=== PATIENT | male | born 1985 | race Caucasian/White ===

== ENCOUNTER 2016-09-30 03:32 | Emergency (ER) | payer BC ==
[2016-09-30 03:37] VITALS: RESP 16
[2016-09-30] MEDS ORDERED: NS 1,000 ML IV ONE ×2 (03:40→04:12)
--- NOTE | 2016-09-30 03:40 | EDPHY ---
H & P Stated Complaint: syncopal episode at 0300am + LOC, pt reports abd pain HPI/ROS: HPI CHIEF COMPLAINT: Syncope positive LOC. HISTORY OF PRESENT ILLNESS: This patient is a 31-year-old male, denies any significant medical history, no surgical history,, earlier this evening was at a wedding and multiple alcoholic beverage including multiple beers and some Tequila. He also smoked marijuana. Around 3:00 a.m. he got up out of bed to go use the bathroom. He was standing over the toilet urinating and had tunnel vision and syncope. He fell to the ground. No seizure activity. He did hit his right chest wall on an object in the bathroom sustaining a superficial abrasion and now has right rib pain. Denies head injury. Neck pain, denies chest pain or shortness of breath. No preceding symptoms except lightheadedness and tunnel vision. He has never had syncopal issue before. He has no cardiac disease in his history or his family that he knows of. No premature cardiac disease or arrest. Denies CP or PRESTON or Neck Pain. Past Medical History: None Past Surgical History: None Social History:Endorses ETOH this evening, Tequila, Marijuana. Family History: No premature cardiac disease ROS REVIEW OF SYSTEMS: A comprehensive 10 point review of systems is otherwise negative aside from elements mentioned in the history of present illness. Exam Constitutional triage nursing summary reviewed, vital signs reviewed, awake/ alert. Eyes normal conjunctivae and sclera, EOMI, PERRLA. HENT normal inspection, atraumatic, moist mucus membranes, no epistaxis, neck supple/ no meningismus, no raccoon eyes. Respiratory clear to auscultation bilaterally, normal breath sounds, no respiratory distress, no wheezing. Cardiovascular right chest wall: Tender palpation over the right anterior lower ribs. No crepitus. No flail chest. Abrasion present. No laceration. rate normal, regular rhythm, no murmur, no edema, distal pulses normal. Gastrointestinal soft, non-tender, no rebound, no guarding, normal bowel sounds, no distension, no pulsatile mass. Genitourinary no CVA tenderness. Musculoskeletal no midline vertebral tenderness, full range of motion, no calf swelling, no tenderness of extremities, no meningismus, good pulses, neurovascularly intact. Skin pink, warm, & dry, no rash, skin atraumatic. Neurologic awake, alert and oriented x 3, AAOx3, moves all 4 extremities equally, motor intact, sensory intact, CN II-XII intact, normal cerebellar, normal vision, normal speech. Psychiatric normal mood/affect. Heme/Lymph/Immune no lymphadenopathy. Differential Diagnosis: Includes but is not limited to in a particular order, dehydration, electrolyte disturbance, orthostatic syncope, micturation syncope, syncope after ingesting alcohol marijuana this evening. Medical Decision Making: Plan for this patient full cardiac surgeon, EKG, IV fluid bolus, check orthostatic vital signs, basic blood work including troponin , EKG and two view chest x-ray. Patient will have a tetanus shot update. Re-evaluation: EKG interpretation by me on record in [employer] system. Impression time of EKG 3:45 a.m., this is sinus rhythm rate of 90, early [place] pulp pattern present. No acute ischemic changes appreciated. No signs of cardiac arrhythmia. QT interval 388. 0413AM: Patient was getting orthostatic vital signs blood pressure did not change blood on upon standing to get very lightheaded and almost fell over. No syncopal episode. Had one episode of nausea/vomiting when he stood up in xray. 0417AM: Back in room, resting, VSS. no Complaints, no cp no sob, no preston no neck pain no back pain. ED x-ray chest two view: Negative for acute cardiopulmonary disease. Specifically no rib fractures. No pneumothorax. Image interpreted by myself. 0447AM: Potassium noted to be low at 3.0. Will order him p. o. potassium as well as AK IV potassium rider. Getting 2nd L fluid this time. Will re- evaluate shortly. 0558AM: Re-evaluation at this time this patient is resting comfortably ambulated well to the bathroom multiple times without any lightheadedness or syncope. He feels better. Received potassium here and 2 L of fluid. Well- hydrated. Vital signs are stable. He denies any chest pain, shortness of breath , headache, lightheadedness and dizziness he feels comfortable going home. He does understand he has a syncopal episode or feels ill today should return emergency room. Stay well-hydrated drink lots of fluids. Eat appropriately. Rest. He understands. Source: Patient - Personal History Current Tetanus/Diphtheria Vaccine: Unsure Current Tetanus Diphtheria and Acellular Pertussis (TDAP): Unsure - Medical/Surgical History Hx Asthma: No Hx Chronic Respiratory Disease: No Hx Diabetes: No Hx Cardiac Disease: No Hx Renal Disease: No Hx Cirrhosis: No Hx Alcoholism: No Hx HIV/AIDS: No Hx Splenectomy or Spleen Trauma: No Other PMH: denies - Social History Smoking Status: Former smoker Constitutional: Initial Vital Signs Temperature (C) 36.5 C 09/30/16 03:34 Heart Rate 90 09/30/16 03:34 Respiratory Rate 16 09/30/16 03:34 Blood Pressure 121/64 H 09/30/16 03:34 O2 Sat (%) 98 09/30/16 03:34 O2 Delivery Mode Room Air Allergies/Adverse Reactions: No Known Allergies Allergy (Unverified 09/30/16 03:37) Home Medications: Medication Instructions Recorded NK [No Known Home Meds] 09/30/16 Medical Decision Making - Data Points Laboratory Results: Laboratory Results 09/30/16 03:50 09/30/16 03:50 09/30/16 09/30/16 09/30/16 04:30 03:50 03:50 WBC RBC Hgb Hct MCV MCH MCHC RDW Plt Count MPV Neut % (Auto) Lymph % (Auto) [place] % (Auto) Eos % (Auto) Baso % (Auto) Nucleat RBC Rel Count Absolute Neuts (auto) Absolute Lymphs (auto) Absolute Monos (auto) Absolute Eos (auto) Absolute Basos (auto) Absolute Nucleated RBC Immature Gran % Immature Gran # PT 13.4 SEC SEC TNP (12.0-15.0) INR 1.03 TNP (0.83-1.16) APTT 20.0 SEC L SEC TNP (23.0-38.0) D-Dimer < 0.27 ug/mLFEU ug/mLFEU TNP (0.00-0.50) Sodium 146 mEq/L H mEq/L (134-144) Potassium 3.0 mEq/L L mEq/L (3.5-5.2) Chloride 107 mEq/L mEq/L (97-110) Carbon Dioxide 23 mEq/l mEq/l (22-31) Anion Gap 16 mEq/L mEq/L (8-16) BUN 16 mg/dL mg/dL (7-23) Creatinine 1.0 mg/dL mg/dL (0.7-1.3) Estimated GFR > 60 Glucose 107 mg/dL H mg/dL (70-100) Calcium 9.3 mg/dL mg/dL (8.5-10.4) Magnesium 1.8 mg/dL mg/dL (1.6-2.3) Total Bilirubin 0.6 mg/dL mg/dL (0.1-1.4) Conjugated Bilirubin 0.3 mg/dL mg/dL (0.0-0.5) Unconjugated Bilirubin 0.3 mg/dL mg/dL (0.0-1.1) AST 42 IU/L IU/L (17-59) ALT 46 IU/L IU/L (21-72) Alkaline Phosphatase 53 IU/L IU/L (38-126) Troponin I < 0.012 ng/mL ng/mL (0-0.034) Total Protein 7.8 g/dL g/dL (6.3-8.2) Albumin 4.8 g/dL g/dL (3.5-5.0) Lipase 91.0 IU/L IU/L (23-300) Ethyl Alcohol 27 mg/dL H mg/dL (0-10) 09/30/16 03:50 WBC 8.45 10^3/uL 10^3/uL (3.80-9.50) RBC 4.79 10^6/uL 10^6/uL (4.40-6.38) Hgb 15.0 g/dL g/dL (13.7-17.5) Hct 43.6 % % (40.0-51.0) MCV 91.0 fL fL (81.5-99.8) MCH 31.3 pg pg (27.9-34.1) MCHC 34.4 g/dL g/dL (32.4-36.7) RDW 12.3 % % (11.5-15.2) Plt Count 273 10^3/uL 10^3/uL (150-400) MPV 10.1 fL fL (8.7-11.7) Neut % (Auto) 28.2 % L % (39.3-74.2) Lymph % (Auto) 57.6 % H % (15.0-45.0) [place] % (Auto) 10.2 % % (4.5-13.0) Eos % (Auto) 2.7 % % (0.6-7.6) Baso % (Auto) 0.9 % % (0.3-1.7) Nucleat RBC Rel Count 0.0 % % (0.0-0.2) Absolute Neuts (auto) 2.38 10^3/uL 10^3/uL (1.70-6.50) Absolute Lymphs (auto) 4.87 10^3/uL H 10^3/uL (1.00-3.00) Absolute Monos (auto) 0.86 10^3/uL H 10^3/uL (0.30-0.80) Absolute Eos (auto) 0.23 10^3/uL 10^3/uL (0.03-0.40) Absolute Basos (auto) 0.08 10^3/uL 10^3/uL (0.02-0.10) Absolute Nucleated RBC 0.00 10^3/uL 10^3/uL (0-0.01) Immature Gran % 0.4 % % (0.0-1.1) Immature Gran # 0.03 10^3/uL 10^3/uL (0.00-0.10) PT INR APTT D-Dimer Sodium Potassium Chloride Carbon Dioxide Anion Gap BUN Creatinine Estimated GFR Glucose Calcium Magnesium Total Bilirubin Conjugated Bilirubin Unconjugated Bilirubin AST ALT Alkaline Phosphatase Troponin I Total Protein Albumin Lipase Ethyl Alcohol Medications Given: Discontinued Medications Diphtheria/Tetanus/Acell Pertussis (Boostrix) 0.5 ml IM .ONCE ONE Stop: 09/30/16 03:47 Last Admin: 09/30/16 04:21 Dose: 0.5 ml Sodium Chloride (Ns) 1,000 mls @ 0 mls/hr IV ONCE ONE; Wide Open PRN Reason: Protocol Stop: 09/30/16 03:41 Last Admin: 09/30/16 03:57 Dose: 1,000 mls Sodium Chloride (Ns) 1,000 mls @ 0 mls/hr IV ONCE ONE PRN Reason: Wide Open Stop: 09/30/16 04:13 Last Admin: 09/30/16 04:19 Dose: 1,000 mls Potassium Chloride (Potassium Cl 10 Meq (Premix)) 100 mls @ 100 mls/hr IV Q1H CHEL Stop: 09/30/16 06:44 Last Admin: 09/30/16 04:55 Dose: 100 mls Ondansetron HCl (Zofran) 4 mg IVP EDNOW ONE Stop: 09/30/16 04:02 Last Admin: 09/30/16 04:18 Dose: 4 mg Potassium Chloride (Klor-Con) 20 meq PO EDNOW ONE Stop: 09/30/16 04:56 Last Admin: 09/30/16 04:56 Dose: 20 meq Departure - Departure Disposition: Home, Routine, Self-Care Clinical Impression: Dehydration, Hypokalemia Syncope Qualifiers: Syncope type: unspecified Qualified Code(s): R55 - Syncope and collapse Condition: Good Instructions: Dehydration (ED), Hypokalemia (ED), Syncope (ED) Additional Instructions: 1.Drink lots of fluids today. Stay well-hydrated. 2. If you develop chest pain or pass out again return to the emergency room. 3. Recommend you eat a few bananas and tomatoes over the next few days as this has potassium. Referrals: NONE *PRIMARY CARE P,. [Primary Care Provider] - As per Instructions
[2016-09-30] MEDS ORDERED: TDAP ADULT 0.5 ML INJ (BOOSTRIX) IM ONE (03:46)
--- NOTE | 2016-09-30 03:46 | CPEKG ---
Heart Rate: 90 RR Interval: 667 P-R Interval: 160 QRSD Interval: 108 QT Interval: 388 QTC Interval: 475 P Kirkman: 12 QRS Kirkman: 73 T Wave Kirkman: 40 EKG Severity - BORDERLINE ECG - EKG Impression: SINUS RHYTHM EKG Impression: ST ELEV, PROBABLE NORMAL EARLY REPOL PATTERN EKG Impression: BORDERLINE PROLONGED QT INTERVAL Electronically Signed By: Jonathan Guerrero 30-Sep-2016 06:15:32
[2016-09-30] MEDS ORDERED: ONDANSETRON 4 MG/2 ML VIAL IVP ONE (04:01)
[2016-09-30 04:08] LABS: % IMMATURE GRANULYOCYTES 0.4 % (0.0-1.1); ABSOLUTE IMMATURE GRANULOCYTES 0.03 10^3/uL (0.00-0.10); ADD DIFF? NO; ADD MORPH? NO; ADD SCAN? NO; ATYPICAL LYMPHOCYTE FLAG 10 (0-99); FRAGMENT RBC FLAG 0 (0-99); HEMATOCRIT 43.6 % (40.0-51.0); LEFT SHIFT FLG 0 (0-99); LIPEMIA HEMOLYSIS FLAG 90 (0-99); MEAN CELL HEMOGLOBIN 31.3 pg (27.9-34.1); MEAN CELL HEMOGLOBIN CONCENTR. 34.4 g/dL (32.4-36.7); MEAN PLATELET VOLUME 10.1 fL (8.7-11.7); PLATELET CLUMPS FLAG 30 (0-99); PLATELET COUNT 273 10^3/uL (150-400); RED BLOOD CELL COUNT 4.79 10^6/uL (4.40-6.38); RED CELL DISTRIBUTION WIDTH 12.3 % (11.5-15.2)
[2016-09-30 04:12] LABS: ALANINE AMINOTRANSFERASE 46 IU/L (21-72); ALBUMIN 4.8 g/dL (3.5-5.0); ALKALINE PHOSPHATASE 53 IU/L (38-126); ANION GAP 16 mEq/L (8-16); ASPARTATE AMINOTRANSFERASE 42 IU/L (17-59); BILIRUBIN,TOTAL 0.6 mg/dL (0.1-1.4); BILIRUBIN-CONJUGATED 0.3 mg/dL (0.0-0.5); BILIRUBIN-UNCONJUGATED 0.3 mg/dL (0.0-1.1); CALCIUM 9.3 mg/dL (8.5-10.4); CARBON DIOXIDE 23 mEq/l (22-31); CHLORIDE 107 mEq/L (97-110); GLOMERULAR FILTRATION RATE > 60; GLUCOSE 107 mg/dL (70-100); MAGNESIUM 1.8 mg/dL (1.6-2.3); SODIUM 146 mEq/L (134-144); TOTAL PROTEIN 7.8 g/dL (6.3-8.2)
[2016-09-30 04:18] LABS: ETHANOL SERUM 27 mg/dL (0-10)
[2016-09-30 04:23] LABS: TROPONIN I < 0.012 ng/mL (0-0.034)
[2016-09-30] MEDS ORDERED: POTASSIUM CL 20 MEQ PKT PO ONE (04:40)
[2016-09-30 04:43] LABS: INR 1.03 (0.83-1.16); PROTIME(PATIENT) 13.4 SEC (12.0-15.0)
[2016-09-30] MEDS ORDERED: POTASSIUM CL 20 MEQ TAB ONE (04:48)
[2016-09-30] MEDS ORDERED: POTASSIUM CL 20 MEQ TAB PO ONE (04:55)
[2016-09-30] MEDS: POTASSIUM Cl (KCl) 100 ML IV SCH ×2 (04:55→05:59)
[2016-09-30 04:58] VITALS: O2SAT 96
[2016-09-30 05:59] VITALS: BP 136/76; PULSE 88; TEMP 98.2
== END 2016-09-30 06:08 | disposition home or self-care (01) ==
DX: R55 Syncope and collapse (principal); E86.0 Dehydration; E87.6 Hypokalemia; E86.9 Volume depletion, unspecified; Z87.891 Personal history of nicotine dependence
CPT/HCPCS: 96365; G0480; J2405